=== PATIENT | female | born 1970 | race Caucasian/White ===

== ENCOUNTER 2017-01-02 10:59 | Day surgery (SDC) | payer MEDICAID ==
[~2017-01-02 10:59] MED LIST: AMARYL4 M1 PO; BYDUREON P2 MG/0.65 SC; GLUCOPHAGE1000 M1 PO; LOSARTAN-HCTZ1 EAC5 PO; PRAVACHOL40 M1 PO; PRENATAL CAPLE1 EACH OP; TYLENOL WITH C1 EACH PO; VITAMIN D PO; VITAMIN D50000 UNI2 PO; ZOVIRAX400 M1 PO
== END 2017-01-02 15:55 ==
LOC: SHSC 10:59 → ORE 12:57 → PACU 13:55 → SHSC 14:40
PROC: 0TF7XZZ Fragmentation in Left Ureter, External Approach (ICD-10-PCS; principal; 2017-01-02)
DX: N20.1 Calculus of ureter (principal); I10 Essential (primary) hypertension; E11.40 Type 2 diabetes mellitus with diabetic neuropathy, unspecified; Z79.899 Other long term (current) drug therapy; Z79.4 Long term (current) use of insulin; Z88.0 Allergy status to penicillin; Z98.890 Other specified postprocedural states; Z88.8 Allergy status to other drugs, medicaments and biological substances; Z88.2 Allergy status to sulfonamides
CPT/HCPCS: J1956